=== PATIENT | female | born 1995 | race Two or more races ===

== ENCOUNTER 2025-03-08 05:45 | Day surgery (SDC) | payer MEDICAID, SELFPAY ==
[2025-03-03 13:42] VITALS: BMI 35.0
[2025-03-03 16:17] LABS: Basophils # (Auto) 0.0 Thou/mm3 (0.0-0.2); Basophils % (Auto) 0 % (0-2.5); Eosinophils # (Auto) 0.0 Thou/mm3 (0.0-0.5); Eosinophils % (Auto) 1 % (0-10); Hematocrit 36.8 % (36.0-46.0); Hemoglobin 12.0 g/dL (12.0-16.0); Immature Granulocytes Auto 0.01 Thou/mm3 (0.00-0.00); Lymphocytes # (Auto) 1.6 Thou/mm3 (1.0-4.8); Lymphocytes % (Auto) 27 % (10-50); Mean Corpuscular HGB Conc 32.6 g/dl (31.0-37.0); Mean Corpuscular Hemoglobin 28.1 pg (25.0-35.0); Mean Corpuscular Volume 86 fL (80-100); Monocytes # (Auto) 0.4 Thou/mm3 (0.0-0.8); Monocytes % (Auto) 6 % (0-12); Neutrophils # (Auto) 3.9 Thou/mm3 (1.8-7.7); Neutrophils % (Auto) 66 % (37-80); Nucleated Red Blood Cell # 0.00 Thou/mm3 (0.00-0.00); Nucleated Red Blood Cell % 0 /100 WBC (0); Platelet Count 231 Thou/mm3 (140-440); RDW Standard Deviation 40.2 fL (36.4-46.3); Red Blood Count 4.27 Miln/mm3 (4.00-5.20); White Blood Count 5.9 Thou/mm3 (3.6-11.0)
[2025-03-03 16:35] LABS: Alanine Aminotransferase 45 U/L (10-49); Albumin, Serum 4.5 gm/dL (3.5-5.0); Albumin/Globulin Ratio 2.0 (1.2-2.2); Alkaline Phosphatase 96 U/L (46-116); Anion Gap 9 (7-16); Aspartate Amino Transferase 43 U/L (0-34); BUN/Creatinine Ratio 14 Ratio (12-20); Beta HCG,Quantitative < 0 mIU/mL (<5.0); Bilirubin,Total 0.6 mg/dL (0.3-1.2); Blood Urea Nitrogen 10 mg/dL (9-23); Calcium 9.3 mg/dL (8.3-10.6); Calcium (Corrected) 9.3 mg/dL (8.5-10.1); Carbon Dioxide 26.2 mMol/L (20.0-31.0); Chloride 106 mMol/L (98-107); Creatinine (Component) 0.7 mg/dL (0.6-1.3); Estimated Creatinine Clearance 110.1 mL/min (>60); Globulin 2.3 gm/dL (2.3-3.5); Glucose 84 mg/dL (74-106); Osmolality,Calculated 279 (275-295); Potassium 3.7 mMol/L (3.4-5.1); Sodium 141 mMol/L (136-145); Total Protein 6.8 gm/dL (5.7-8.2); eGFR > 60 See Note
[2025-03-03 16:37] LABS: INR 1.0 (0.9-1.3); Partial Thromboplastin Time 31.0 Seconds (22.0-36.0); Prothrombin Time 10.7 Seconds (9.0-12.2)
--- NOTE | 2025-03-07 11:18 | ESHP_ITS ---
RE: KAVON JACKSON : 1995 DATE OF ADMISSION: 03/08/2025 HISTORY OF PRESENT ILLNESS: This is a 29-year-old 4, para 2-0-2-2 with abnormal uterine bleeding, who presents for endometrial ablation. She has a history of sterilization and declines future fertility. Dysmenorrhea is also a quality of life issue for her. ALLERGIES: MACROBID. MEDICATIONS: None. SOCIAL HISTORY: She is . She denies any alcohol, drug use, or smoking. PAST MEDICAL HISTORY: Endometriosis, retroverted uterus, chlamydia, cervicitis. delivery in 2013 and 2023 and D and C in 09/2016 and 06/2017. PAST SURGICAL HISTORY: delivery and bilateral tubal ligation. FAMILY HISTORY: Cousin with congenital heart disease, prior abortus with monosomy X, paternal grandfather with colon cancer, diabetes, hypertension, heart disease. OBSTETRIC HISTORY: In 2013, 40 weeks, delivery. No complications. In 2016, 8 weeks, spontaneous AB with D and C. In 2016, 6 weeks, spontaneous AB with D and C. In 2023, 38 weeks, delivery. PHYSICAL EXAMINATION: VITAL SIGNS: Blood pressure 118/74, heart rate 68, respirations 18, temperature 98.2. Weight 185 pounds. HEENT: Oropharynx and sclerae are clear. LUNGS: Clear to auscultation bilaterally. HEART: Regular rate and rhythm. ABDOMEN: Old Pfannenstiel scar noted. EXTREMITIES: Nontender. SKIN: No gross rashes or lesions. NEUROLOGIC: No focal deficits. ASSESSMENT: Abnormal uterine bleeding, dysmenorrhea. PLAN: Hysteroscopy, fractional dilatation and curettage, and NovaSure endometrial ablation. Informed consent was obtained. The patient was made aware of the risks, complications, alternatives, and benefits of the proposed procedure and she agrees. She is aware of the risk of injury to bowel, bladder, uterus, pulmonary embolism, deep vein thrombosis, pelvic infection, reoperation to repair injury to internal organs, anesthesia complications, the possibility that a laparotomy needs to be performed to repair organs or control bleeding, possibility the procedure is not able to be completed due to severe adhesions, cervical stenosis, or technical difficulties. She verbalized understanding and agrees to proceed with the procedure with an understanding of the risks and complications. DT: 10:35:36 TT: 11:16:00 Ref: [id number] - TID: [id number] MTDD
[2025-03-08] VITALS (7 sets, daily range): BP systolic 106–122; BP diastolic 60–78; PULSE 61–78; RESP 12–14; TEMP 36.3–36.6; O2SAT 95–98; BMI 35.2
--- NOTE | 2025-03-08 08:30 | SUR.PHASEI ---
0830 patient arrived to recovery resting comfortably in [facility], on oxygen 2L via nasal cannula, breathing unlabored, vital signs stable, dressing intact to vaginal area; peripad, no bleeding noted, denies pain and nausea, report received from [facility] and Dr. Burnham
[2025-03-08] MEDS: ACETAMINOPHEN IVPB 1,000 MG/100 ML VIAL 250 MG IV (08:54)
--- NOTE | 2025-03-08 08:58 | ESOP_ITS ---
Operative Note - HEALTH SAFETY SPECIALIST Procedure Date of procedure: 03/08/25 Procedure Performed: Hysteroscopy Myosure Endometrial Biopsies Fractional dilatation curettage NovaSure endometrial ablation Indication: Abnormal Uterine Bleeding Pre-Op diagnosis: Abnormal Uterine Bleeding Post-Op diagnosis: Abnormal Uterine Bleeding Anesthesia type: General Procedure description: After proper informed consent was obtained and the patient made aware of the risk complications alternatives and benefits of the proposed procedure she was taken to the operating room where she underwent induction of general anesthesia.? She was placed in the dorsal lithotomy position and prepped and draped the usual sterile fashion.? A timeout was performed.? A bivalve speculum was inserted.? A single-tooth tenaculum was used to grasp the anterior lip of the cervix.? The uterine cavity was sounded to 8.5 cm retroverted.? The cervical length measured 3.5 cm.? The cervix was dilated to accommodate the 5.5 mm Omni hysteroscope.? Using the Aquilex system and normal saline as the distending media the hysteroscopy was performed and the below findings?were visualized in the uterine cavity.?? The Using the MyoSure Reach device the endometrial biopsies were performed and specimens sent to pathology. The fluid deficit at the end of the MyoSure procedure was 0.? The endocervix was curetted with the Kevorkian curette and specimen sent to pathology.? The uterine cavity was cur etted with a 5 mm curette and specimen sent to pathology.? The NovaSure catheter was plugged into the controller.? It went through its purge cycle.? The array was deployed and was found to be complete and intact with the width meter working properly. The Novasure catheter was appropriately seated in the uterine cavity.? The cavity length was 4.0 cm, ?the cavity width was 3.0 cm the power setting was 83 W.? The carbon dioxide cavity integrity assessment test was performed.? The uterine cavity was intact.? The controller was enabled and the ablation was performed for a total of 106 seconds before the controller shut off.? The array was retracted into the sheath and the catheter was removed from the uterine cavity.? The array was redeployed and found to be complete and intact.? There was bleeding at the anterior lip of the cervix at the site of the tenaculum and using the Bovie cautery hemostasis was achieved.? There was no bleeding at the end of the procedure.? All instruments were removed from the vagina.? She was reversed from general anesthesia in supine position and transferred to the cover room in stable condition.? She tolerated the procedure well.? Counts were correct.? I discussed with the patient's family the nature of her condition, the intraoperative findings, the expectation for recovery, all questions answered. Specimen: other (1. Endometrial tissue 2. Endometrial currettings 3. Endocervical Currettings) Estimated blood loss (ml): 5 Findings: Uterus sounded to 8.5 cm. Cervical length 3.5 cm. Uterine cavity length 5.0 cm. Uterine cavity width 3.0 cm. Power setting 83 W. duration of ablation 1 minute and 46 seconds. Fluids observed hysteroscopically 70 cc of normal saline. Uterine cavity contained thickened endometrial lining. No endometrial polyps visualized. No submucous myomas. No irregularities of the uterine cavity. Uterus was retroverted Complications: none Surgical staff Operation Date: 03/08/25 07:45 Case Staff Anesthesiologist: Edy Burnham Diagnosis Discharge Diagnosis (1) Abnormal uterine bleeding: Status: Acute Problem List Completed Was Problem List Reviewed/Reconciled?: Yes
[2025-03-08] MEDS: ONDANSETRON INJ 2 MG/ML INJ 2 ML 4 MG IVP (09:06)
--- NOTE | 2025-03-08 09:30 | SUR.PHASEII ---
0930 Patient meets discharge criteria from recovery, awake and alert, breathing unlabored, vital signs stable, denies pain, dressing intact; no bleeding noted, eating ice chips; denies nausea, voided in the restroom prior to discharge, assisted with dressing into her clothing by her , discharge instructions given to patient and patients , signed discharge instructions. Patient given all her belongings prior to discharge, transported via wheelchair and left in a private vehicle.
== END 2025-03-08 09:30 | disposition home or self-care (01) ==
PROVIDERS: PCP Family Medicine; Referring Provider Specialist; Visit Provider Specialist
PROC: 0U5B8ZZ Destruction of Endometrium, Via Natural or Artificial Opening Endoscopic (ICD-10-PCS; CPT 58563; principal; 2025-03-08 07:30)
DX: N93.9 Abnormal uterine and vaginal bleeding, unspecified (principal); N94.6 Dysmenorrhea, unspecified; Z98.51 Tubal ligation status
CPT/HCPCS: 58563; 36415; 80053; 84702; 85025; 85610; 85730; 86850; 86900; 86901; A4217; A4649; J0131; J0690; J1100; J2371; J2405; J2704; J2765; J3010; J3490